=== PATIENT | female | born 1990 | race Caucasian/White ===

== ENCOUNTER → 2017-04-29 16:13 | Outpatient (CLI) | payer OTHER, SELFPAY | PROVIDERS: Visit Provider Nurse Practitioner Women's Health | DX: Z12.4 Encounter for screening for malignant neoplasm of cervix (principal) ==

== ENCOUNTER → 2017-06-10 12:51 | Outpatient (CLI) | payer OTHER, SELFPAY ==
--- NOTE | 2017-06-10 13:00 | US_ITS ---
STUDY: ULTRASOUND OF THE FEMALE PELVIS REASON FOR EXAM: Female, 26 years old. Pelvic pain LMP: June 06, 2017 TECHNIQUE: Transverse and longitudinal imaging of the pelvis was obtained transabdominally and transvaginally using real-time ultrasound. COMPARISON: None. FINDINGS: The uterus is retroverted and is in a midline position. The uterus measures 8.8 x 5.1 x 4.9 cm. The cervix is unremarkable. The uterus is bicornuate. The endometrial stripe in the right horn measures 14.2 mm. The endometrial stripe in the left horn measures 8.0 mm. There is no demonstrated endometrial mass. There is no demonstrated myometrial mass. I.U.D. - The patient does not have an I.U.D. The right ovary is visualized. The right ovary measures 3.9 x 1.8 x 3.3 cm. There are follicles in the right ovary without a dominant cyst. There is no visualized right adnexal mass or complex lesion. There is normal arterial and normal venous vascularity. The left ovary is visualized. The left ovary measures 3.3 x 2.5 x 3.3 cm. There are follicles in the left ovary without a dominant cyst. There is an anechoic mass in the left ovary measuring 1.5 x 1.6 x 1.7 cm. There is no visualized left adnexal mass or complex lesion. There is normal arterial and normal venous vascularity. There is no fluid in the cul-de-sac. No significant abnormalities are seen on limited visualization of the urinary bladder. US/Pelvic (Non ) IMPRESSION: There is a small cyst or dominant follicle in the left ovary measuring 1.7 cm in size. The appearance is benign. A bicornuate uterus is present. No acute abnormalities are seen in the uterus. There is no free fluid. Electronically Signed: Jazmin Morris MD at 8:25 EDT Tel Direct: [phone], Service support ,
--- NOTE | 2017-06-10 14:00 | US_ITS ---
STUDY: ULTRASOUND OF THE FEMALE PELVIS REASON FOR EXAM: Female, 26 years old. Pelvic pain LMP: June 06, 2017 TECHNIQUE: Transverse and longitudinal imaging of the pelvis was obtained transabdominally and transvaginally using real-time ultrasound. COMPARISON: None. FINDINGS: The uterus is retroverted and is in a midline position. The uterus measures 8.8 x 5.1 x 4.9 cm. The cervix is unremarkable. The uterus is bicornuate. The endometrial stripe in the right horn measures 14.2 mm. The endometrial stripe in the left horn measures 8.0 mm. There is no demonstrated endometrial mass. There is no demonstrated myometrial mass. I.U.D. - The patient does not have an I.U.D. The right ovary is visualized. The right ovary measures 3.9 x 1.8 x 3.3 cm. There are follicles in the right ovary without a dominant cyst. There is no visualized right adnexal mass or complex lesion. There is normal arterial and normal venous vascularity. The left ovary is visualized. The left ovary measures 3.3 x 2.5 x 3.3 cm. There are follicles in the left ovary without a dominant cyst. There is an anechoic mass in the left ovary measuring 1.5 x 1.6 x 1.7 cm. There is no visualized left adnexal mass or complex lesion. There is normal arterial and normal venous vascularity. There is no fluid in the cul-de-sac. No significant abnormalities are seen on limited visualization of the urinary bladder. US/Transvaginal Non- IMPRESSION: There is a small cyst or dominant follicle in the left ovary measuring 1.7 cm in size. The appearance is benign. A bicornuate uterus is present. No acute abnormalities are seen in the uterus. There is no free fluid. Electronically Signed: Jazmin Morris MD at 8:25 EDT Tel Direct: [phone], Service support ,
== END ==
PROVIDERS: Visit Provider Nurse Practitioner Women's Health
DX: R10.2 Pelvic and perineal pain (principal)
CPT/HCPCS: 76830; 76856; 93976

== ENCOUNTER → 2019-05-11 14:50 | Outpatient (CLI) | payer OTHER, SELFPAY ==
[2019-05-11 14:44] VITALS: BMI 25.7
[2019-05-11 15:20] LABS: Absolute Lymphocyte Count 1.71 X10^3/uL (0.83-4.51); Basophil# 0.02 X10^3/uL; Basophil% 0.2 % (0-1); Eosinophil# 0.09 X10^3/uL; Eosinophils% 0.9 % (0-5); Hematocrit 39.9 % (37-47); Hemoglobin 13.5 g/dL (12.0-15.0); Lymphocyte # 1.71 X10^3/ul (4.0); Lymphocyte % 17.9 % (19-41); Mean Corp Hgb Conc 33.8 g/dL (32-36); Mean Corpuscular Hgb 29.3 pg (27.0-32.0); Mean Corpuscular Volume 86.7 fL (81-99); Mean Platelet Vol. 9.9 fl (6.2-12.0); Monocyte# 0.69 X10^3/uL; Monocyte% 7.2 % (0-10); NRBC Flagged by Analyzer 0 % (0-5); Neutrophil # 7.03 X10^3/uL (2.7-7.7); Neutrophil % 73.5 % (47-70); Platelet Count 180 K/mm3 (150-450); RBC Distribution Width CV 13.2 % (11.6-14.6); RBC Distribution Width SD 40.6 fl (35.1-43.9); White Blood Count 9.6 K/mm3 (4.4-11.0)
[2019-05-11 18:24] LABS: Amphetamine Urine VISTA NEGATIVE (<1000 ng/mL); Barbiturate Urine VISTA NEGATIVE (< 200 ng/mL); Benzodiazepine Urine VISTA NEGATIVE (< 200 ng/mL); Cocaine Urine VISTA NEGATIVE (< 300 ng/mL); Ecstacy Urine VISTA NEGATIVE (< 500 ng/mL); Methadone Urine VISTA NEGATIVE (< 300 ng/mL); PCP Urine VISTA NEGATIVE (< 25 ng/mL); THC Urine VISTA NEGATIVE (< 50 ng/mL); Vista UDS pH Range 7
[2019-05-11 21:16] LABS: Chlamydia Trachomatis by PCR Negative (Negative); Neisserai gonorrhoeae by PCR Negative (Negative); Probe Check PASS; Sample Adequacy Control PASS; Specimen Processing Control PASS
[2019-05-12 10:24] LABS: HIV - WCH Non-Reactive (Nonreactive); Hepatitis B Surface Antigen Non-Reactive (Nonreactive); Hepatitis C Antibody Non-Reactive (Nonreactive); Rubella IgG 350.6 IU/mL
[2019-05-13 02:39] LABS: Rapid Plasmin Reagin (RPR) NONREACTIVE (NONREACTIVE)
[2019-05-14 13:47] LABS: HPV APTIMA, High Risk Negative (Negative)
== END ==
PROVIDERS: Referring Provider Obstetrics & Gynecology; Visit Provider Obstetrics & Gynecology
DX: Z34.80 Encounter for supervision of other normal pregnancy, unspecified trimester (principal); Z12.4 Encounter for screening for malignant neoplasm of cervix
CPT/HCPCS: 36415; 80307; 85025; 86592; 86703; 86762; 86803; 86850; 86900; 86901; 87086; 87088; 87340; 87491; 87591; 87624; 88175; G0145

== ENCOUNTER → 2019-09-21 08:46 | Outpatient (CLI) | payer OTHER, SELFPAY ==
[2019-08-05 11:24] VITALS: BMI 25.7
[2019-09-03 11:43] VITALS: BMI 25.7
--- NOTE | 2019-09-21 08:46 | US_ITS ---
STUDY: SECOND AND THIRD TRIMESTER OBSTETRICAL ULTRASOUND - LIMITED REASON FOR EXAM: Female, 28 years old high risk , history of bicornuate uterus and placenta previas LMP: 03/08/2019 PRIOR ULTRASOUND: None. TECHNIQUE: Transabdominal and Transvaginal TECHNICAL QUALITY: Adequate. FINDINGS: There is a single intrauterine fetus. The fetus is in a cephalic presentation. There is demonstrated cardiac activity with a heart rate of 150 bpm. There is a normal amniotic fluid volume. The largest amniotic fluid pocket measures 5.4 x 7.9 cm. The amniotic fluid index (HANNAH) is 17.07 cm. The placenta is posterior in location and is not low lying. Tip of the placenta is 3 cm away from the cervical os. There are Grade 1 placental changes. The cervix measures 4.8 cm in length. Age by LMP: 28 weeks, 1 days. JONATHAN by LMP: 12/13/2019. US/OB Limited (No Biometrics) IMPRESSION: Single live intrauterine with heart rate of 150 bpm. Placenta location is posterior, not low-lying. Placental tip is 3 cm away from the cervical os. age by LMP is 28 weeks 1 day with JONATHAN from LMP of 12/13/2019 Electronically Signed: Juan Morillo MD at 10:25 EDT , Service support ,
== END ==
PROVIDERS: Referring Provider Obstetrics & Gynecology; Visit Provider Obstetrics & Gynecology
DX: O09.93 Supervision of high risk pregnancy, unspecified, third trimester (principal); Z3A.28 28 weeks gestation of pregnancy
CPT/HCPCS: 76815

== ENCOUNTER → 2019-09-23 08:00 | Outpatient (CLI) | payer OTHER, SELFPAY ==
[2019-09-03 11:43] VITALS: BMI 25.7
[2019-09-23 08:33] LABS: Absolute Lymphocyte Count 1.44 X10^3/uL (0.83-4.51); Absolute Neutrophil Count 6.5 X10^3/uL (2.0-7.7); Basophil# 0.01 X10^3/uL; Basophil% 0.1 % (0-1); Eosinophil# 0.07 X10^3/uL; Eosinophils% 0.8 % (0-5); Hematocrit 36.5 % (37-47); Hemoglobin 11.6 g/dL (12.0-15.0); Lymphocyte # 1.44 X10^3/ul (4.0); Lymphocyte % 16.9 % (19-41); Mean Corp Hgb Conc 31.8 g/dL (32-36); Mean Corpuscular Hgb 28.9 pg (27.0-32.0); Mean Corpuscular Volume 90.8 fL (81-99); Mean Platelet Vol. 10.1 fl (6.2-12.0); Monocyte# 0.46 X10^3/uL; Monocyte% 5.4 % (0-10); NRBC Flagged by Analyzer 0 % (0-5); Neutrophil # 6.51 X10^3/uL (2.7-7.7); Neutrophil % 76.3 % (47-70); Platelet Count 141 K/mm3 (150-450); RBC Distribution Width CV 14.5 % (11.6-14.6); RBC Distribution Width SD 47.8 fl (35.1-43.9); Red Blood Count 4.02 M/mm3 (4.2-5.4); White Blood Count 8.5 K/mm3 (4.4-11.0)
[2019-09-23 08:43] LABS: Glucose Challenge Gest 1H 50g 166 mg/dL (70-140)
== END ==
PROVIDERS: PCP Family Medicine; Referring Provider Obstetrics & Gynecology; Visit Provider Obstetrics & Gynecology
DX: Z34.80 Encounter for supervision of other normal pregnancy, unspecified trimester (principal)
CPT/HCPCS: 36415; 82950; 85025

== ENCOUNTER → 2019-09-24 09:35 | Outpatient (CLI) | payer OTHER, SELFPAY ==
[2019-09-23 08:27] VITALS: BMI 25.7
[2019-09-24 10:30] LABS: Glucose GTT-Gestation. Fasting 92 mg/dL (<105)
[2019-09-24 11:38] LABS: Glucose GTT-Gestational 1 Hr 171 mg/dL (<190)
[2019-09-24 12:31] LABS: Glucose GTT-Gestational 2 Hr 155 mg/dL (<165)
[2019-09-24 13:22] LABS: Glucose GTT-Gestational 3 Hr 140 L (<145)
== END ==
PROVIDERS: PCP Family Medicine; Referring Provider Obstetrics & Gynecology; Visit Provider Obstetrics & Gynecology
DX: O99.810 Abnormal glucose complicating pregnancy (principal); Z3A.00 Weeks of gestation of pregnancy not specified
CPT/HCPCS: 36415; 82951; 82952

== ENCOUNTER → 2019-11-18 11:41 | Outpatient (CLI) | payer OTHER, SELFPAY ==
[2019-11-10 08:44] VITALS: BMI 25.7
[2019-11-18 11:12] VITALS: BMI 31.9
--- NOTE | 2019-11-18 11:41 | US_ITS ---
STUDY: SECOND AND THIRD TRIMESTER OBSTETRICAL ULTRASOUND REASON FOR EXAM: Female, 29 years old growth LMP: 03/07/2019 TECHNIQUE: Transabdominal TECHNICAL QUALITY: Adequate. PRIOR ULTRASOUND: None. FINDINGS: There is a single intrauterine fetus. The fetus is in a cephalic presentation. There is demonstrated cardiac activity with a heart rate of 180 bpm. There is a normal amniotic fluid volume. The largest amniotic fluid pocket measures 4.8 cm. The amniotic fluid index (HANNAH) is 10.2 cm. The placenta is posterior in location and is not low lying. There are Grade 2 placental changes. The cervix is not visualized. The adnexal regions are not visualized. BIOMETRY: BPD: 9: 36 weeks, 4 days HC: 32.3: 36 weeks, 3 days AC: 33.6: 37 weeks, 3 days FL: 7.1: 36 weeks, 1 days age by current US: 36 weeks, 5 days. JONATHAN by current US: 12/11/2019. Estimated weight: 3082 grams, +/- 456 grams, 68 %. Age by LMP: 36 weeks, 3 days. JONATHAN by LMP: 12/13/2019. US/OB Limited With Biometrics IMPRESSION: age by current US: 36 weeks, 5 days. JONATHAN by current US: 12/11/2019. Estimated weight: 3082 grams, +/- 456 grams, 68 %. Electronically Signed: Al Mcnulty, at 2:59 EDT Tel , Service support ,
== END ==
PROVIDERS: PCP Family Medicine; Referring Provider Obstetrics & Gynecology; Visit Provider Obstetrics & Gynecology
DX: O34.00 Maternal care for unspecified congenital malformation of uterus, unspecified trimester (principal); Q51.3 Bicornate uterus; Z3A.00 Weeks of gestation of pregnancy not specified
CPT/HCPCS: 76816; 87081

== ENCOUNTER 2019-12-08 09:30 | Inpatient (IN) | payer OTHER, SELFPAY ==
[2019-09-23 08:27] VITALS: BMI 25.7
[2019-12-02 11:52] VITALS: BMI 25.7
--- NOTE | 2019-12-05 12:01 | HP.PCM_ITS ---
- Problem List (1) Abnormal glucose affecting Status: Acute Comment: normal 3 hr GTT (2) Anxiety Status: Chronic Comment: situational, doing well now (3) Bicornate uterus complicating Status: Acute Qualifiers: Comment: delivery at 37 weeks in past; normal growth 11/21 (4) delivery delivered Status: Acute Comment: x2 plan RLTCS with SM (5) tachycardia Status: Acute Comment: s/p MFM consult. weekly nsts and growth us at 36 (6) History of depression, currently Status: Acute (7) Status: Acute Qualifiers: Comment: declines genetic, carrier and NTD. anatomy reveiwed. (8) Supervision of other normal Status: Acute Comment: PRR JONATHAN: 12/13/2019 boy PC: Sam Ovalle Spouse: Kojo History and Physical Date of Admission: 12/08/19 Intake Vital Signs 12/02/19 BMI 25.7 12/02/19 Height 5 ft 5 in 12/02/19 Weight: 195 lb 12/02/19 BMI 32.4 12/02/19 BP 112/68 11/05/19 BMI 25.7 Intake Visit Reasons: 38 WK OB / NST Associate Spa Director Required: No Is patient in pain?: No Allergies No Known Allergies Allergy (Verified 12/02/19 11:35) Medications multivitamin,[id number] 1 tab PO QDAY 04/29/17 [History Confirmed 12/02/19] Last Menstral Period: 03/08/19 Zika: Zika virus screening: Negative : No PFSH PFSH Medical History Bicornate uterus complicating (Acute) Anxiety (Chronic) Surgical History delivery delivered (Acute) Family History Father Hypertension Grandmother Hypertension Grandfather No problems noted. Social History (Updated 12/02/19 @ 13:[address] 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 Date Name GA/Weeks Outcome Route Bth Weight Infant Gen Labor Lgth Anesthesia Del Locatn Provider FOB Unknown 04/25/2013 Vasquez 37 live - full term 7lbs 9oz Male epidural Tracy Tizanno Unknown 03/26/2016 Luke 37 live - full term 8lbs 4oz Male spinal Tracy Benekos Delivery Date: On 05/11/19 @ 14:00 Yasemin Schaefer bicornate uterus Delivery Date: No notes to display HPI 38 WK OB / NST : Details: TOD JOE is a 29 year old who presents for RLTCS. OB Visit JONATHAN Calculator Estimated Delivery Date Method Current WG Current Estimate 12/13/19 LMP (Certain) 38w 3d Expected Delivery Route/Plan RLTCS with SM on 12/07 Labor support person Kojo Specific Issue/Plans flu vaccine given tdap vaccine given rhogam NA LARC form signed movement and labor precautions reviewed. Problem list reviewed and updated with the most current details and appropriate orders placed. Continue routine care and follow up unless otherwise noted in visit notes/problem list details. Initial Weight: 165 lb Date EGA Weight BP Urine Prot Glucose FHR FuHt Pres Dilation Effaced St Visit Note 05/11/19 9w 1d 165 lb (+0 oz) 102/64 160 06/08/19 13w 1d 166 lb 4 oz (+1 lb 4 oz) 124/82 Negative Negative 168 MH-no Vb,lof. Some GI reflex. Nausea improved. MH-no Vb,lof. Some GI reflex. Nausea improved. Flu vaccine 08/05/19 21w 3d 174 lb 2 oz (+9 lb 2 oz) 120/60 Negative Negative 150 SM- no vb lof good fm no regular ctx. 09/03/19 25w 4d 176 lb 6 oz (+11 lb 6 oz) 110/72 Negative Negative 161 25 MH-NO Vb, LOF. Good FM. US to recheck previa is scheduled. 09/23/19 28w 3d 181 lb (+16 lb) 112/70 150 29 SM- no v lof good fm no regular ctx 10/07/19 30w 3d 181 lb 6 oz (+16 lb 6 oz) 124/64 Negative Negative 150 30 SM- no vb lof good fm no regular ctx 10/21/19 32w 3d 186 lb (+21 lb) 118/60 Negative Negative 190 32 SM- no vb lof good fm no regular ctx. tachycardia- plan nst now 11/05/19 34w 4d 189 lb 8 oz (+24 lb 8 oz) 126/72 Negative Negative 190 34 Sm- n ovb lof good fm no regular ctx 11/10/19 35w 2d 134/62 Negative Negative 165 37 SM- initial tachycardia, baseline decreasing with nst monitoring. plan weekly nsts until deivery and get growth scan next week 11/18/19 36w 3d 192 lb (+27 lb) 120/74 150 38 SM- nl baseline today no vb lof good fm no regular ctx 12/02/19 38w 3d 195 lb (+30 lb) 112/68 130 40 Cephalic 1 50 -3 GP - reactive NST. Occasi onal contractions. Denies LOF, VB, DFM. ACOG First Trimester First Trimester: Desire for , Alcohol, Tobacco Cessation, Illicit/Recreational Drug/Substance Use, Intimate Partner Violence, Barriers to care, Unstable Housing, Communication Barriers, Environmental/Work Hazards, Anticipated Course of Care, Toxoplasmosis Precations, Use of Any medications, Sexual activity, Exercise, Dental Care, Sauna/Hot tub use, Seat Belt use, Childbirth classes/Hospital facilities, , Travel, Indications for US and Screening for Aneuploidy Second Trimester Second Trimester: Signs and Symptoms of Labor, Selecting a care provider, Reproductive Life Planning, Care Planning, Tobacco Cessation, Depression/Anxiety and Intimate Partner Violence Third Trimester Third Trimester: Pain Management Plans, Labor support person(s), Immediate Larc, Movement Monitoring and Infant Feeding Yes ; discussed Trial of Labor after Counseling or discussed Circumcision preference Diagnostics Diagnostics Diagnostics Blood Type O POSITIVE 05/11/19 Antibody Screen NEGATIVE 05/11/19 Gest Glucose Tolerance MG/DL 09/24/19 Glucose 1 Hr 50 gm 166 mg/dL (70-140) H 09/23/19 HIV 1&2 Antibody Non-Reactive (Nonreactive) 05/11/19 Group B Strep DNA Negative (Negative) 03/18/16 Rubella IgG Antibody 350.6 IU/mL 05/11/19 Hgb 11.6 g/dL (12.0-15.0) L 09/23/19 Hct 36.5 % (37-47) L 09/23/19 RPR NONREACTIVE (NONREACTIVE) 05/11/19 Details: HIV: Urine Culture: Sequential Screen: NIPT Screen: ROS Const Reports fatigue, Denies fever(s), Denies increased appetite, Denies weight gain Card Denies chest pain, Denies shortness of breath Resp Denies shortness of breath GI Denies constipation, Reports heartburn, Reports nausea, Reports vomiting Denies abnormal vaginal bleeding, Denies painful urination, Denies nipple discharge, Denies pelvic pain, Denies vaginal discharge, Denies vaginal odor, Denies vaginal itching Skin/Breast Reports breast pain, Reports breast swelling, Denies nipple discharge Psych Denies anxiety, Denies depression Endo Reports fatigue Exam Const General: cooperative, healthy appearing, comfortable, no acute distress, well developed, well groomed Nutritional Appearance: average body habitus, well nourished Orientation: alert, awake, oriented x3 [facility] Head: normal to inspection, normocephalic, atraumatic Eyes Pupils: PERRL, accommodation normal Resp Effort & Inspection: normal respiratory effort, able to speak in complete sentences, symmetric chest movement Cardio Rate: regular rate GI Palpation: soft, no guarding, no masses, nontender Skin General: no rashes or lesions noted, elasticity normal, turgor normal Neuro General: alert, awake, oriented x3 Cranial Nerves: CN's II-XI intact bilaterally, sense of smell intact, PERRL, accommodation normal, EOM intact bilaterally Speech: speech normal Gait: normal gait Psych Appearance: grossly normal, well kempt Mental Status: mental status grossly normal Mood: congruent mood Affect: normal affect Speech and Movement: speech and movement normal Attitude: cooperative Thought Process: normal Thought Content: normal Judgment: judgment good Assessment & Plan Problems 1. Anxiety F41.9 2. delivery delivered O82 3. Uterus bicornis affecting in third trimester O34.03 4. Supervision of other normal Z34.80 5. History of depression, currently O99.89; Z86.59 6. Abnormal glucose affecting O99.810 7. tachycardia 8. 38 weeks gestation of Z3A.38 Plan Patient scheduled for RCD on 12/07 GBS negative Rh positive Rubella immune Orders Orders: POC Urinalysis 2 Dip (Clinic) Today F41.9, [id number], Z34.80 OB NST Today F41.9, [id number], Z34.80 UPDATE- I have seen the patient and performed any clinically relevant updates to the history and physical exam. Coty Aviles MD Coding Level of Care Code OB Routine Diagnoses Anxiety F41.9 delivery delivered O82 Uterus bicornis affecting in third trimester O34.03 ??Trimester: third trimester Supervision of other normal Z34.80 History of depression, currently O99.89; Z86.59 Abnormal glucose affecting O99.810 tachycardia 38 weeks gestation of Z3A.38 ??Weeks of gestation: 38 weeks
[2019-12-08] VITALS (15 sets, daily range): BP systolic 96–115; BP diastolic 41–73; PULSE 74–89; RESP 12–18; TEMP 36.2–37.3; O2SAT 97–100; BMI 33.7
[2019-12-08] MEDS: Lactated Ringers 1,000 ML 999 ML IV (09:55)
[2019-12-08 10:24] LABS: Absolute Lymphocyte Count 1.85 X10^3/uL (0.83-4.51); Basophil# 0.01 X10^3/uL; Basophil% 0.1 % (0-1); Eosinophil# 0.02 X10^3/uL; Eosinophils% 0.2 % (0-5); Hematocrit 34.5 % (37-47); Hemoglobin 10.9 g/dL (12.0-15.0); Lymphocyte # 1.85 X10^3/ul (4.0); Lymphocyte % 21.8 % (19-41); Mean Corp Hgb Conc 31.6 g/dL (32-36); Mean Corpuscular Hgb 27.1 pg (27.0-32.0); Mean Corpuscular Volume 85.8 fL (81-99); Monocyte# 0.62 X10^3/uL; Monocyte% 7.3 % (0-10); NRBC Flagged by Analyzer 0 % (0-5); Neutrophil # 5.95 X10^3/uL (2.7-7.7); Neutrophil % 70.1 % (47-70); Platelet Count 133 K/mm3 (150-450); RBC Distribution Width CV 14.5 % (11.6-14.6); RBC Distribution Width SD 45.5 fl (35.1-43.9); Red Blood Count 4.02 M/mm3 (4.2-5.4); White Blood Count 8.5 K/mm3 (4.4-11.0)
[2019-12-08] MEDS: Acetaminophen 500 MG Tablet 1000 MG PO ×3 (11:00→22:41)
[2019-12-08] MEDS: Lactated Ringers 1,000 ML 150 ML IV (11:00)
--- NOTE | 2019-12-08 11:14 | OP.PCM_ITS ---
Problem List (1) Abnormal glucose affecting Status: Acute Comment: normal 3 hr GTT (2) Anxiety Status: Chronic Comment: situational, doing well now (3) Bicornate uterus complicating Status: Acute Qualifiers: Comment: delivery at 37 weeks in past; normal growth 11/21 (4) delivery delivered Status: Acute Comment: x2 plan RLTCS with SM (5) tachycardia Status: Acute Comment: s/p MFM consult. weekly nsts and growth us at 36 (6) History of depression, currently Status: Acute (7) Status: Acute Qualifiers: Comment: declines genetic, carrier and NTD. anatomy reveiwed. (8) Supervision of other normal Status: Acute Comment: PRR JONATHAN: 12/13/2019 boy PC: Sam Ovalle Spouse: Kojo Delivery Classification: Scheduled Final JONATHAN: 12/12/19 Gestational age: 39 Weeks and 3 Days Type of Anesthesia:: Spinal Special Medications: none Implants Used: none Date of Procedure: 12/08/19 Pre-Operative Diagnosis: prev cs x 2 Indications for : Repeat Elective Description of Procedure: Spinal anesthesia was placed without difficulty. Narvaez catheter was placed. The patient was placed in the dorsal supine position with leftward tilt. Patient was prepped and draped in the normal sterile fashion. Pfannenstiel skin incision was made with the scalpel and carried through to the underlying layer of fascia with the scalpel. Fascia was nicked in the midline and the incision extended laterally. The rectus bellies were dissected off superiorly and inferiorly with out complication both sharply and bluntly. The peritoneum was entered digitally. The incision was stretched and a low transverse uterine incision was made with the scalpel. The infant's head was delivered atraumatically followed by the anterior and posterior shoulders without complication the rest of the infant delivered. The cord was clamped and cut and the infant was handed off to awaiting nurse. The placenta was delivered spontaneously immediately following and was noted to be intact and have a three- vessel cord. The uterus was exteriorized cleared of all clots and debris, and the incision was closed in a double layer closure using #1 Monocryl. The ovaries and fallopian tubes were noted to be within normal limits. The uterus was returned to the maternal abdomen and gutters were cleared of all clots and debris. The peritoneum was closed with 3-0 Monocryl in a running fashion. Gloves were changed prior to fascial closure. Fascia was closed with 0 PDS in a running fashion. Subcutaneous tissue was copiously irrigated and the skin was closed with 3-0 Monocryl in a subcuticular fashion. Mepilex dressing was applied without complication. Patient was taken to recovery in stable condition. It was discussed with the patient that based on the clinical information obtained during this encounter, combined with her history, at this time I would recommend cesareans for future deliveries if further pregnancies are desired. Amniotic Membrane Rupture Type: Artificial Amniotic Fluid Description: Clear Placenta Disposition: [facility] Gender: Male Antibiotic Given: Ancef 2 grams IV x1 Pt instructed on risks of surgery: Bleeding, Anesthesia Risks, Infection, Need for Future C-Sections, Injury to surrounding structure(s) including bowel and bladder - Admit VTE Documentation VTE Present on Admission: No VTE Mechan Device Prophylaxis: SCD's Multi Select Codes - Urinary/Genital Urinary/Genital CPT Codes: 95364 Delivery [facility]
[2019-12-08] MEDS: Sodium Citrate/Citric Acid 30 ML UDC PO (11:19)
--- NOTE | 2019-12-08 11:19 | DCINST_ITS ---
Discharge Diet: No Restrictions Discharge Activity: May Not Drive - for 2 weeks, May not drive while taking narcotic pain medications., May Shower, May Take a Tub Bath - in 7 days May resume sexual activity in: 4-6 weeks Lifting Restrictions: 20 pounds Additional Activity Instructions:: Nothing in the vagina for 4-6 weeks. You may return to work/school in 6 weeks. Call your doctor if your incision/area has: Continuous Slow Oozing, Sudden Increased Bleeding, Increased Pain/ Swelling, Increased Redness, Foul Smelling Discharge Call your doctor if you observe: Fever of 101 or Higher, Using more than one pad per hour - for 2 hours Suture Line Care: Avoid Pulling/Pushing, Avoid Pinching/Bending Cleanse incision/area with: Keep Dressing Clean & Dry Additional Instructions: If you experience any of the following, contact your healthcare provider. * Bleeding that soaks a pad every hour for 2 hours * Fever 100.4 or higher * Unrelieved incision or abdominal pain * Swelling, redness, discharge or bleeding from your incision or episiotomy site * Your incision begins to separate * Problems urinating (including inability to urinate or burning while urinating). * Visual changes * Severe headache * Flu-like symptoms * Pain or redness in one of both of your breasts * Pain, warmth, tenderness or swelling in your legs, especially the calf area * Frequent nausea and vomiting * Symptoms of depression or anxiety If you experience any of the following, call 911 or go to the nearest Emergency Room. * Chest pain * Problems breathing * Seizure activity * Partial or complete paralysis of a body part, slurred speech, weakness or drooping of the face, or a sudden inability to walk or hold your balance Allergies/Adverse Reactions: Allergies No Known Allergies Allergy (Verified 12/08/19 09:43) Medications to take at Discharge multivitamin,[id number] 1 tab PO QDAY 04/29/17 Naproxen [Naprosyn] 250 - 500 mg PO Q8H PRN PRN #30 tab 12/08/19 Oxycodone HCl/Acetaminophen [Percocet 5-325] 1 - 2 tablet PO Q6H PRN PRN 7 Days #15 tablet 12/08/19 The following prescriptions were given: Naproxen [Naprosyn] 250 - 500 mg PO Q8H PRN PRN #30 tab PRN Reason: MILD PAIN Transmission Status: Pending to [facility] Oxycodone HCl/Acetaminophen [Percocet 5-325] 1 - 2 tablet PO Q6H PRN PRN 7 Days #15 tablet PRN Reason: Pain Transmission Status: Sent to [facility] Follow-Up: Call to make an appointment with your doctor for an incision check in 1-2 weeks. You will also need a 6 week post- follow up appointment. Test results from this visit will be discussed in further detail at your follow- up appointment, if applicable. Please Follow Up With: Coty Aviles MD - Call to make an appointment for an incision check in 1-2 [phone] When: You will need a post- check in 6 weeks. Primary Care Physician: Radha Barros MD [Primary Care Provider] -
[2019-12-08] MEDS: Cefazolin 2 GM in 0.9% Normal Saline 100 ML IV (11:27)
[2019-12-08] MEDS: Oxytocin 30 units/NS 500 ml 30 UNITS/500 ML IV.SOLN 167 UNITS IV (12:40)
[2019-12-08] MEDS: Ketorolac 30 MG/ML Syringe IV ×2 (13:39→20:42)
[2019-12-08] MEDS: 0.9% Saline Lock 10 ML Syringe IV ×2 (16:01→20:43)
--- NOTE | 2019-12-08 21:28 | NURSING ---
pt has indwelling urinary catheter
--- NOTE | 2019-12-08 23:16 | NURSING ---
Late entry: RN attempted to get pt up and out of bed per policy at this 2104. Pt nine hours post op at that time. Pt able to move to side of bed on own very slowly with pauses for increased pain with movement. Pt states incision burning with movement. Pt declines continuing attempt to stand at side of bed at this time. RN encourages pt to notify RN when pt feels more ready to attempt movement. Pt refuses howell catheter removal at 2119 stating I just feel like crap and it hurts too much to get up. RN will continue to monitor pt and pt pain level and encourage pt to move when able.
[2019-12-09 00:37] VITALS: BP 99/52; PULSE 80; RESP 18; TEMP 37.1; O2SAT 98
--- NOTE | 2019-12-09 00:41 | NURSING ---
pulse ox removed at this time per order as pt 12 hours post op at this time
--- NOTE | 2019-12-09 00:54 | NURSING ---
Pt refuses catheter removal at this time.
[2019-12-09] MEDS: Ketorolac 30 MG/ML Syringe IV ×2 (02:45→07:49)
[2019-12-09] MEDS: Acetaminophen 500 MG Tablet 1000 MG PO ×4 (04:34→23:17)
[2019-12-09 04:35] VITALS: BP 101/62; PULSE 74; RESP 18; TEMP 36.6; O2SAT 98
[2019-12-09 05:24] LABS: Hematocrit 32.4 % (37-47); Hemoglobin 10.3 g/dL (12.0-15.0); Mean Corp Hgb Conc 31.8 g/dL (32-36); Mean Corpuscular Hgb 27.6 pg (27.0-32.0); Mean Corpuscular Volume 86.9 fL (81-99); Mean Platelet Vol. 10.8 fl (6.2-12.0); Platelet Count 114 K/mm3 (150-450); RBC Distribution Width CV 14.4 % (11.6-14.6); RBC Distribution Width SD 45.3 fl (35.1-43.9); Red Blood Count 3.73 M/mm3 (4.2-5.4); White Blood Count 9.9 K/mm3 (4.4-11.0)
--- NOTE | 2019-12-09 05:32 | NURSING ---
Addendum entered by Kim Simpson 12/09/19 06:54: Pt refused howell catheter removal at this time. RN educated pt on risks of leaving catheter in. Original Note: Pt ambulated with assist of RN to rocking chair in room. Pt behaved appropriately and moved well, despite feeling increased pain with movements. Pt left sitting in chair comfortably, to call RN when ready to move back into bed.
--- NOTE | 2019-12-09 06:45 | NURSING ---
RN removed pt catheter, tip intact, at this time. Pt reluctant to discontinue catheter due to pain with movement. RN encouraged pt movement can help with pain and reviewed risks of leaving catheter in place longer. RN also encouraged pt to notify RN when pt feels she must void. Pt tolerated howell catheter removal well and states she feels better after removal. RN will continue to monitor pt.
[2019-12-09] MEDS: 0.9% Saline Lock 10 ML Syringe IV (07:50)
[2019-12-09 07:57] VITALS: BP 92/55; PULSE 71; RESP 16; TEMP 36.7; O2SAT 97
[2019-12-09] MEDS: Senna/Docusate Sodium 1 Tablet PO (10:04)
[2019-12-09] MEDS: Multivitamins,Ther W-Minerals Tablet 1 TABLET PO (10:05)
[2019-12-09] MEDS: Naproxen 250 MG Tablet 500 MG PO ×2 (13:36→22:05)
[2019-12-09 13:39] VITALS: BP 101/57; PULSE 74; RESP 16; TEMP 36.5; O2SAT 97
--- NOTE | 2019-12-09 13:56 | PN.OBGYN_ITS ---
Subjective: Patient doing well without complaints. Tolerating PO. Ambulating and voiding without difficulty.breast feeding well. Denies chest pain, shortness of breath, calf pain/swelling, fevers, chills, lightheadedness. - Physical Exam Vitals/I&O's: Vital Signs Temp Pulse Resp BP Pulse Ox 97.7 F L 74 16 101/57 L 97 12/09/19 13:39 12/09/19 13:39 12/09/19 13:39 12/09/19 13:39 12/09/19 13:39 Oxygen Delivery Method Room Air Weight: 197 lb Body Mass Index (BMI) 33.7 Intake and Output for Last 24 Hours 12/07/19 12/08/19 12/09/19 23:59 23:59 23:59 Intake Total 2592.67 / 2592.67 Output Total 1050 / 1050 3730 / 3730 Balance 1542.67 / 1542.67 -3730 / -3730 General: Alert, Oriented x3 Laboratory Results 12/09/19 05:00: WBC 9.9, RBC 3.73 L, Hgb 10.3 L, Hct 32.4 L, MCV 86.9, MCH 27.6, MCHC 31.8 L, RDW Std Deviation 45.3 H, RDW Coeff of Rosenda 14.4, Plt Count 114 L, MPV 10.8 Current Medications Acetaminophen (Tylenol) 1,000 mg PO Q6H [facility] Last Admin: 12/09/19 11:40 Dose: 1,000 mg Documented by: Bisacodyl (Dulcolax) 10 mg RECTAL UD PRN PRN Reason: If no BM Hydrocortisone (Hytone) 1 applic TOPICAL TID PRN PRN; Protocol PRN Reason: Discomfort Naloxone HCl 4 mg/ Dextrose 504 mls @ 0 mls/hr IV .Q0M PRN; Protocol PRN Reason: Respiratory depression Methylergonovine Maleate (Methergine) 0.2 mg IM X1 PRN PRN Reason: Uterine Atony Multivitamins/Minerals (Multivitamin With Minerals (Bkc)) 1 tablet PO DAILY@0800 [facility] Last Admin: 12/09/19 10:05 Dose: 1 tablet Documented by: Naloxone HCl (Narcan) 0.02 mg IV Q1M PRN PRN Reason: RR <10 and pt unresponsive Naproxen (Naprosyn) 500 mg PO Q8H TIM Last Admin: 12/09/19 13:36 Dose: 500 mg Documented by: Ondansetron HCl (Zofran) 4 mg IV Q4H PRN PRN PRN Reason: Nausea Oxycodone HCl (Oxyir) 5 - 10 mg PO Q4H PRN PRN PRN Reason: Pain Score 4-10/10 Prochlorperazine Edisylate (Compazine Iv) 10 mg IV Q6H PRN PRN PRN Reason: NAUSEA Senna/Docusate Sodium (Senokot-S, Paulina-Colace) 0 tablet PO DAILY TIM Last Admin: 12/09/19 10:04 Dose: 2 tablet Documented by: Simethicone (Mylicon) 80 mg PO PCHS PRN PRN Reason: Indigestion/stomach pain Last Admin: 12/09/19 10:09 Dose: 80 mg Documented by: Sodium Chloride () 5 - 15 ml IV UD PRN PRN Reason: SALINE FLUSH Last Admin: 12/09/19 07:50 Dose: 10 ml Documented by: Medical Necessity - Tobacco Use Smoking Status: Never smoker Assessment/Plan All Active Problems (Last Reviewed 12/02/19 @ 11:35 by Yasemin Schaefer) tachycardia (Acute) Abnormal glucose affecting (Acute) History of depression, currently (Acute) Supervision of other normal (Acute) Bicornate uterus complicating (Acute) delivery delivered (Acute) (Acute) Placenta previa (Resolved) s/p LTCS PPD # 1 1. routine post care 2. breast feeding- support given 3. rh positive 4. rubella immune
[2019-12-09 20:35] VITALS: BP 98/58; PULSE 73; RESP 16; TEMP 36.5; O2SAT 96
[2019-12-09] MEDS: oxyCODONE 5 MG Tablet PO (20:50)
[2019-12-10 01:50] VITALS: BP 104/55; PULSE 68; RESP 16; TEMP 36.3; O2SAT 98
[2019-12-10] MEDS: Acetaminophen 500 MG Tablet 1000 MG PO (05:07)
[2019-12-10] MEDS: Naproxen 250 MG Tablet 500 MG PO (06:04)
[2019-12-10 08:27] VITALS: BP 118/76; PULSE 77; RESP 16; TEMP 36.7
[2019-12-10 08:30] VITALS: BP 118/76; PULSE 77; RESP 18; TEMP 36.7
[2019-12-10] MEDS: Senna/Docusate Sodium 1 Tablet PO (09:45)
[2019-12-10] MEDS: Multivitamins,Ther W-Minerals Tablet 1 TABLET PO (09:46)
--- NOTE | 2019-12-10 10:09 | NURSING ---
Assisted student with med administration. pt states she felt a lot of pain during the surgery. She appears calm while discussing her surgery but doesn't want this to happen to another pt. Listened to pt and told her we were sorry that she felt pain during her surgery. States that her pain has been well controlled now and that the nursing staff have been great.
== END 2019-12-10 11:00 | disposition home or self-care (01) | DRG 788 ==
PROVIDERS: Admitting Provider Obstetrics & Gynecology; PCP Family Medicine; Referring Provider Obstetrics & Gynecology; Visit Provider Obstetrics & Gynecology
PROC: 10D00Z1 Extraction of Products of Conception, Low, Open Approach (ICD-10-PCS; CPT 59514; principal; 2019-12-08 11:15)
DX: O34.211 Maternal care for low transverse scar from previous cesarean delivery (principal); O76 Abnormality in fetal heart rate and rhythm complicating labor and delivery; O34.03 Maternal care for unspecified congenital malformation of uterus, third trimester; Q51.3 Bicornate uterus; Z3A.39 39 weeks gestation of pregnancy; Z37.0 Single live birth
CPT/HCPCS: 85025; 85027; 86850; 86900; 86901; 99218; 99251; J7120; A4216; G0378; G0463; J2405

== ENCOUNTER → 2020-09-05 08:09 | Outpatient (CLI) | payer OTHER, SELFPAY ==
[2020-01-27 11:24] VITALS: BMI 28.9
[2020-09-05 09:54] LABS: Absolute Lymphocyte Count 1.92 X10^3/uL (0.83-4.51); Absolute Neutrophil Count 3.7 X10^3/uL (2.0-7.7); Basophil# 0.03 X10^3/uL; Basophil% 0.5 % (0-1); Eosinophil# 0.13 X10^3/uL; Eosinophils% 2.1 % (0-5); Hematocrit 41.3 % (37-47); Hemoglobin 13.6 g/dL (12.0-15.0); Lymphocyte # 1.92 X10^3/ul (0.83-4.51); Lymphocyte % 30.5 % (19-41); Mean Corp Hgb Conc 32.9 g/dL (32-36); Mean Corpuscular Volume 85.2 fL (81-99); Mean Platelet Vol. 10.5 fl (6.2-12.0); Monocyte# 0.47 X10^3/uL; Monocyte% 7.5 % (0-10); NRBC Flagged by Analyzer 0 % (0-5); Neutrophil # 3.73 X10^3/uL (2.7-7.7); Neutrophil % 59.1 % (47-70); Platelet Count 191 K/mm3 (150-450); RBC Distribution Width CV 13.7 % (11.6-14.6); RBC Distribution Width SD 42.3 fl (35.1-43.9); Red Blood Count 4.85 M/mm3 (4.2-5.4); White Blood Count 6.3 K/mm3 (4.4-11.0)
[2020-09-05 10:28] LABS: Anion Gap 4 (5-15); BUN 9 mg/dL (7-18); BUN/Creat Ratio 13.2 RATIO (10-20); Calcium,Total 8.7 mg/dL (8.5-10.1); Chloride 109 mmol/L (98-107); Cholesterol 198 mg/dL (200); Creatinine, Serum 0.68 mg/dL (0.55-1.02); EST Glomerular Filtration Rate 107 mL/min (>60); Est Glom Filt Rate - Afr Amer 129 mL/min (>60); Glucose 98 mg/dL (74-106); High Density Lipoprotein 40 mg/dL; Sodium Level 140 mmol/L (136-145); Thyroid Stim Hormone (TSH) 2.55 uIU/mL (0.358-3.74); Triglycerides 120 mg/dL; Very Low Density Lipoprotein 24 mg/dL (5-40)
== END ==
PROVIDERS: PCP Family Medicine; Referring Provider Family Medicine; Visit Provider Family Medicine
DX: Z00.00 Encounter for general adult medical examination without abnormal findings (principal); N94.6 Dysmenorrhea, unspecified; K29.70 Gastritis, unspecified, without bleeding
CPT/HCPCS: 36415; 80048; 80061; 84443; 85025

== ENCOUNTER → 2021-03-15 13:23 | Outpatient (CLI) | payer OTHER, SELFPAY ==
[2021-03-15 14:12] LABS: Vitamin D,25 Hydroxy 29.5 ng/mL
[2021-03-15 14:16] LABS: Thyroid Stim Hormone (TSH) 2.75 uIU/mL (0.358-3.74)
== END ==
PROVIDERS: PCP Family Medicine; Referring Provider Nurse Practitioner Women's Health; Visit Provider Nurse Practitioner Women's Health
DX: L65.9 Nonscarring hair loss, unspecified (principal); Z13.21 Encounter for screening for nutritional disorder
CPT/HCPCS: 36415; 82306; 84443

== ENCOUNTER → 2022-03-01 | Outpatient (CLI) | payer OTHER, SELFPAY | END | disposition home or self-care (01) | LOC: BFHLAB 15:08 → LABSPEC 15:09 | PROVIDERS: PCP Family Medicine; Visit Provider Family Medicine | DX: R30.0 Dysuria (principal) | CPT/HCPCS: 87077; 87086; 87088; 87186 ==

== ENCOUNTER → 2022-12-04 | Outpatient (CLI) | payer OTHER, SELFPAY ==
[2022-12-04 09:50] LABS: Cholesterol 223 mg/dL (200); Glucose 104 mg/dL (74-106); High Density Lipoprotein 45 mg/dL; T4 Free Direct 0.93 ng/dL (0.76-1.46); Thyroid Stim Hormone (TSH) 2.85 uIU/mL (0.358-3.74); Triglycerides 160 mg/dL; Very Low Density Lipoprotein 32 mg/dL (5-40)
[2022-12-05 08:12] LABS: Thyroid Peroxidase AB 13 IU/mL (0-34)
== END | disposition home or self-care (01) ==
PROVIDERS: PCP Family Medicine; Referring Provider Nurse Practitioner Women's Health; Visit Provider Nurse Practitioner Women's Health
DX: R53.83 Other fatigue (principal); Z13.220 Encounter for screening for lipoid disorders; Z13.1 Encounter for screening for diabetes mellitus; Z13.29 Encounter for screening for other suspected endocrine disorder; Z13.21 Encounter for screening for nutritional disorder
CPT/HCPCS: 36415; 80061; 82306; 82947; 83036; 84439; 84443; 86376

== ENCOUNTER → 2022-12-23 | Outpatient (CLI) | payer OTHER, SELFPAY ==
--- NOTE | 2022-12-23 12:46 | US_ITS ---
EXAM: US PELVIS TRANSABDOMINAL AND TRANSVAGINAL, COMPLETE CLINICAL INDICATION: Pelvic painHX OF BICORNUATE UT W/ SMALLER LEFT HORN TECHNIQUE: Transabdominal and transvaginal pelvic ultrasound was performed with grayscale and color Doppler imaging. Transvaginal imaging was used for better evaluation of the endometrium and adnexa. COMPARISON: No relevant prior studies available. FINDINGS: UTERUS/CERVIX: Bicornuate uterus with a slightly smaller left horn. The right measures 8.0 x 6.6 x 3.8 cm and the left measures 6.4 x 6.6 x 3.1 cm. Endometrial echo measures 1 cm in the left and right horn. Anteverted. There is no uterine mass. RIGHT OVARY: Cyst measuring 2.4 x 1.5 x 1.9 cm right ovary. Blood flow is present in the right ovary. The right ovary measures 3.6 x 4.1 x 2.7 cm. LEFT OVARY: Unremarkable. Blood flow is present in the left ovary. The left ovary measures 3.3 x 3.0 x 1.4 cm. FREE FLUID: None. BLADDER: Unremarkable as visualized. Wall is normal thickness for degree of distention. US/Pelvic w/ Transvaginal IMPRESSION: 1. Bicornuate uterus. No acute abnormality. 2. Follicle measuring 2.4 x 1.5 x 1.9 cm right ovary. Electronically Signed: Barry Manzano MD at 4:43 EDT ,
== END | disposition home or self-care (01) ==
LOC: US 12:46
PROVIDERS: PCP Family Medicine; Referring Provider Nurse Practitioner Women's Health; Visit Provider Nurse Practitioner Women's Health
DX: R10.2 Pelvic and perineal pain (principal); R53.83 Other fatigue
CPT/HCPCS: 76830; 76856

== ENCOUNTER → 2024-06-22 | Outpatient (CLI) | payer OTHER, SELFPAY ==
[2024-06-22 11:44] LABS: Cholesterol 220 mg/dL (<=200); Glucose 99 mg/dL (70-99); High Density Lipoprotein 46 mg/dL; Low Density Lipoprotein Calc. 138 mg/dL; Triglycerides 181 mg/dL; Very Low Density Lipoprotein 36 mg/dL (5-40); cholesterol:hdl ratio screen 4.84
== END | disposition home or self-care (01) ==
LOC: MTLAB 08:45
PROVIDERS: PCP Family Medicine; Referring Provider Family Medicine; Visit Provider Family Medicine
DX: Z00.00 Encounter for general adult medical examination without abnormal findings (principal)
CPT/HCPCS: 36415; 80061; 82947